=== PATIENT | female | born 1990 | race African-American/Black ===

== ENCOUNTER 2016-11-09 19:00 | Emergency (ER) | payer SELFPAY ==
[~2016-11-09] VITALS: Ht 162.6 cm; Wt 70.0 kg
[2016-11-09 19:06] VITALS: BP 116/68
== END 2016-11-09 23:00 | disposition left against medical advice (07) ==
LOC: ER 21:50
DX: R10.9 Unspecified abdominal pain (principal); Z53.21 Procedure and treatment not carried out due to patient leaving prior to being seen by health care provider